=== PATIENT | male | born 1965 | race African-American/Black ===

== ENCOUNTER 2017-01-05 06:10 | Inpatient (IN) | payer OTHER ==
[~2017-01-05 06:10] MED LIST: Buffered Lidocaine 0.9% SYRIN* 5 ML/SYR SYRINGE INTRADERM ONE; Gabapentin CAP(*) 400 MG PO ONE
[2017-01-05] MEDS ORDERED: ceFAZolin 1 GM ADVAN(*) 1 GM ADDV.VIAL IVPB ONE (06:22)
[2017-01-05] MEDS ORDERED: Buffered Lidocaine 0.9% SYRIN* 5 ML/SYR SYRINGE ONE (06:22)
[2017-01-05] MEDS ORDERED: Gabapentin CAP(*) 300 MG ONE (06:22)
[2017-01-05] MEDS ORDERED: ceFAZolin 2 GM PREMIX (*) 50 ML IVPB ONE (06:22)
[2017-01-05] MEDS ORDERED: Midazolam* 1 MG/ML 5 ML VIAL (5 MG) ONE (07:46)
[2017-01-05] MEDS ORDERED: fentaNYL* 50 MCG/ML 2 ML VIAL (100 MCG VIAL) ONE ×4 (07:46→12:25)
[2017-01-05] MEDS ORDERED: Lidocaine 2% EPI 1:200000 MPF* 20 ML VIAL ONE ×2 (07:47→11:00)
[2017-01-05] MEDS ORDERED: Propofol* 500 MG/50 ML BTL ONE ×2 (08:25→09:50)
[2017-01-05] MEDS ORDERED: Propofol* 10 MG/ML 20 ML BTL IV PUSH ONE (08:38)
[2017-01-05] MEDS ORDERED: Ondansetron INJ* 2 MG/ML VIAL IV PRN ×3 (09:10→12:14)
[2017-01-05] MEDS ORDERED: Lactated Ringers 500 ml BAG* 500 ML IV PRN (09:10)
[2017-01-05] MEDS ORDERED: diPHENhydraMINE IV* 50 MG/ML 1 ml VIAL (BENADRYL) IV PRN ×2 (09:10→12:14)
[2017-01-05] MEDS ORDERED: Ropivacaine 0.2% EPIDURAL* 200 MG/100 ML BAG EPIDURAL ONE (10:57)
[2017-01-05] MEDS ORDERED: DiMENhydriNATE IV* 50 MG/ML VIAL IV PUSH PRN (11:11)
[2017-01-05] MEDS ORDERED: Bisacodyl SUPP* 10 MG SUPP PR PRN (12:14)
[2017-01-05] MEDS ORDERED: Magnesium Hydroxide LIQ* 30 ML UDC PO PRN (12:14)
[2017-01-05] MEDS ORDERED: oxyCODONE/Acetamin 5/325 MG* TAB PO PRN (12:14)
[2017-01-05] MEDS ORDERED: Acetaminophen TAB* 325 MG PO PRN (12:14)
[2017-01-05] MEDS ORDERED: HYDROmorphone INJ* 1 MG/ML CARPUJECT SYRINGE ONE (12:25)
[2017-01-05] MEDS ORDERED: Ketorolac INJ* 30 MG/ML 1 ML VIAL ONE (12:26)
[2017-01-05] MEDS: fentaNYL* 50 MCG/ML 2 ML VIAL (100 MCG VIAL) IV PRN ×2 (12:27→12:32)
[2017-01-05] MEDS: Ketorolac INJ* 30 MG/ML 1 ML VIAL IV PRN ×2 (12:28→22:24)
[2017-01-05] MEDS: HYDROmorphone INJ* 1 MG/ML CARPUJECT SYRINGE IV PRN ×5 (12:47→13:28)
--- NOTE | 2017-01-05 13:00 | RAD ---
HISTORY: Status post left knee arthroplasty COMPARISONS: September 14, 2016 VIEWS: 2, Frontal and lateral views of the left knee FINDINGS: BONE DENSITY: Normal. BONES: The patient is status post left knee arthroplasty. There is no hardware failure or osteolysis. JOINTS: The patient is status post left knee arthroplasty ALIGNMENT: There is no dislocation. SOFT TISSUES: Unremarkable. OTHER FINDINGS: None. IMPRESSION: STATUS POST LEFT KNEE ARTHROPLASTY
[2017-01-05] MEDS ORDERED: oxyCODONE TAB* 5 MG TAB ONE (13:36)
[2017-01-05] MEDS: oxyCODONE TAB* 5 MG TAB PO PRN ×3 (13:37→23:44)
[2017-01-05 17:16] LABS: EGFR African American 70.5 (>60); EGFR Non-African American 54.8 (>60)
[2017-01-05] MEDS: ceFAZolin 1 GM VIAL(*) 1 GM in NS 0.9% 50 ML* 50 ML IVPB SCH (18:12)
[2017-01-05] MEDS: Ropivacaine 0.2% EPIDURAL* 200 MG/100 ML BAG EPIDURAL SCH (18:41)
[2017-01-05] MEDS ORDERED: Lactated Ringers 500 ml BAG* 500 ML IV ONE (20:00)
[2017-01-05] MEDS: Docusate CAP* 100 MG PO SCH (22:24)
[2017-01-06] MEDS: Ropivacaine 0.2% EPIDURAL* 200 MG/100 ML BAG EPIDURAL SCH (02:27)
[2017-01-06] MEDS: ceFAZolin 1 GM VIAL(*) 1 GM in NS 0.9% 50 ML* 50 ML IVPB SCH ×2 (02:30→12:12)
[2017-01-06] MEDS: oxyCODONE/Acetamin 5/325 MG* TAB PO PRN ×5 (05:48→18:31)
[2017-01-06 07:03] LABS: Comments Flag Yes; Hematocrit 29 % (42-52); Hemoglobin 9.7 g/dl (14.0-18.0)
[2017-01-06 07:16] LABS: BUN/Creatinine Ratio 10.4 (8-20); Calcium 7.6 mg/dL (8.6-10.3); EGFR African American 72.3 (>60); EGFR Non-African American 56.2 (>60); Potassium 3.6 mmol/L (3.5-5.0)
--- NOTE | 2017-01-06 07:37 | PN ---
Progress Note - Progress Note Date of Service: 01/06/17 SOAP: Subjective: Pain decreased. Epidural (& Hamilton) removed. Objective: Comfortable-appearing in bed, using an incentive spirometer, surrounded by 2 guards NAD LLE: - FIONA c/d/i - NVID x-rays L knee yesterday: excellent position of implants, no fracture Selected Entries 01/06/17 03:23 Temperature 99.8 F Pulse Rate 96 Respiratory 16 Rate Blood Pressure 106/57 (mmHg) O2 Sat by Pulse 99 Oximetry Laboratory Tests 01/05/17 01/06/17 01/06/17 16:50 06:11 06:11 Hct 29 L Sodium 131 L Creatinine 1.37 H 1.34 H Assessment: POD 1 L TKA Plan: - PT, OOB, WBAT, for walking, strengthening, ROM - I placed a pillow under patient's heel - Xarelto outpatient dose starting this AM - Ancef x 24 hours postop - Pain control
[2017-01-06] MEDS: Rivaroxaban TAB(*) 20 MG TAB PO SCH (08:52)
[2017-01-06] MEDS: Docusate CAP* 100 MG PO SCH ×2 (08:52→20:25)
[2017-01-06] MEDS: Vitamin THERAPEUTIC TAB PO SCH (08:52)
[2017-01-06] MEDS: Morphine INJ* 2 MG/ML 1 ML CARPUJECT IV PRN ×2 (09:36→12:30)
--- NOTE | 2017-01-06 10:24 | OP ---
DATE OF OPERATION: 01/05/17 - ROOM #341 DATE OF : 65 ATTENDING SURGEON: Eugenio Rojas MD. BOOT AND SHOE REPAIRMAN: JESUS Buchanan. A physician circulation assistant was required for the length of the procedure for retraction and instrumentation. Katharine Larios was second assist. ANESTHESIOLOGIST: Cornelio Belcher MD. ANESTHESIA: Spinal anesthesia, epidural anesthesia. PRE-OP DIAGNOSIS: Left knee osteoarthritis. POST-OP DIAGNOSIS: Left knee osteoarthritis. OPERATIVE PROCEDURE: Left total knee arthroplasty. ANTIBIOSIS: Ancef 3 g IV. IV FLUIDS: 2200 cc crystalloid. TOURNIQUET TIME: 143 minutes up, 19 minutes down, 31 minutes up, at 300 mmHg. COMPLICATIONS: None. ESTIMATED BLOOD LOSS: Less than 250 cc. SPECIMENS: None. IMPLANTS: DePuy, Tello and Tello Attune, cruciate retaining total knee arthroplasty system. Size 8 femur, cruciate retaining. Size 6 tibial base plate, fixed bearing. Size 7 mm insert, cruciate retaining. Patella size 38 mm. Simplex bone cement, Danielito. INDICATIONS FOR PROCEDURE: The patient is a 51-year-old man, a prisoner in [place], who presented to me in clinic with a long history, over 15 years of pain and osteoarthritis of the left knee. He had a distant past history of what seemed to be an open lateral meniscectomy, likely complete, as a teenager or younger. The patient had long considered a total knee arthroplasty for over the last 10 years. He presented to me interested in it. He responded insufficiently to nonoperative management, as I detailed in my history and physical on prior clinic notes, and he opted for total knee replacement. The patient had a history of DVT in 2009 and diagnosed factor V Leiden deficiency, on Xarelto. Discussed risks and potential complications of procedure including bleeding, infection, nerve or blood vessel injury, blood clot, knee pain, implant failure , knee stiffness, , pulmonary embolus, deep venous thrombosis. The patient opted for surgery. DESCRIPTION OF PROCEDURE: Preoperative written consent was obtained. The patient had been stopped on Xarelto the Tuesday prior to procedure being his final dose, which is actually 4 days prior to the operation. It had been intended to be stopped 3 days pre-op. Operative extremity was marked in the preoperative holding. The patient was taken back to the operating room and epidural anesthetic was placed by Dr. Cornelio Belcher, the anesthesiologist. The patient was placed supine on operating room table. A lateral thigh post was placed on the bed to prevent external rotation of the left lower extremity. A proximal left thigh tourniquet was placed. The left knee had been shaved of hair by preoperative staff. I did an examination under anesthesia which revealed range of motion from 2 to 110 degrees of flexion. Knee ligaments were stable to stress testing. The left lower extremity was prepped with chlorhexidine from foot to proximal thigh followed by ChloraPrep. The left lower extremity was draped. The Catacel Butterfield , a knee positioner system, was utilized and the foot was placed in the holster. Gloves were changed. Surgical time-out was performed. An Esmarch was applied and the tourniquet was elevated to 300 mmHg. An anterior longitudinal skin incision was made from 4 fingerbreadths from proximal pole of the patella to the distal end of the tibial tubercle, the skin overlying the tibial tubercle. I exchanged knives and I continued my dissection deep through the subcutaneous tissue, also in the midline. I encountered the patella and the extensor mechanism. I used a Catacel Butterfield curved scissors to cut the subcutaneous tissue overlying the extensor mechanism proximally. Using feathering strokes, I dissected down on to the extensor mechanism more distally and exposed it centrally and medially. With the knee in approximately 70 degrees of flexion, I marked my medial parapatellar arthrotomy and then made it with a #10 blade. I continued this parapatellar arthrotomy deep distally through the anterior horn of the medial meniscus. I then extended the knee. Used Bovie electrocautery to peel the capsule off the anterior aspect of the medial tibial plateau. I then continued that dissection with a 3/8th or 1/4-inch curved osteotome around the medial aspect of the medial tibial plateau. I next used electrocautery to remove some of the anterior capsule off the lateral tibial plateau deep to the patellar tendon. I removed some but not all of the fat deep to the patellar tendon. I partially everted the patella and released some soft tissue, although no tendon from circumferential about the undersurface of the patella. Removed osteophytes off the patella with a rongeur. I revealed the lateral patellofemoral ligament and released some of it with Bovie electrocautery. The patella was able to easily pita with knee flexion, allowing for nice exposure of the knee joint. I encountered a significant deformity of the patellofemoral compartment. Besides large osteophytes about the undersurface of patella, there was a deep defect in the lateral aspect of the trochlear groove, a full thickness cartilage loss, focally. I next placed retractors medially and laterally. Placed a Schnitt hemostat posterior to the ACL and used Bovie electrocautery to cut the mid substance of the ACL. I removed the proximal and distal stumps of the ACL with a rongeur. I next removed some peripheral osteophytes of the peripheral aspect of the medial and lateral femoral condyle. I also removed with a rongeur, osteophytes in the intercondylar notch. I marked a spot with Bovie electrocautery just anterior to the origin of the PCL, just medial to the midpoint of the medial femoral condyle from medial to lateral. I next placed a drill on ream and reamed into the femoral canal. Irrigation was placed. Irrigation was sucked out along with some marrow contents. I then placed a distal femoral cutting guide. I used a distal femoral cutting guide set on 5 degrees of valgus and 9 mm of resection. I pinned this guide and then removed bone with an oscillating saw. I next excised the femur. I sized to within an size 8 and size 9. I placed a 4 in one cutting guide first, size 9. I made an anterior cut. It was obvious that an additional 3 mm could be taken, so I next placed the size 8, 4, and 1 cutting guide. I then made my anterior femoral cut and liked the resection. I pinned that 4 and 1 cutting guide and I made my anterior-posterior, anterior chamfer, and posterior chamfer cuts with an oscillating saw. I removed some osteophytes posteriorly with curved osteotome. I placed retractors including pickle-fork retractor to expose the tibia. I next placed my external alignment tibial guide over the lower leg. I did not see significant wear of either medial or lateral compartment, which was as expected, having viewed radiographs preoperatively. I removed 6 mm off the medial side with a posterior slope set at 7 degrees. I pinned my guide, I confirmed its proper orientation with an alignment gary, and used an oscillating saw to make my cuts. After making this cut, I decided I wanted additional bone resected and slightly more posterior slope to get a true 7 degrees of posterior slope. I therefore replaced my tibial resection guide, took an additional approximate 4 mm, and added a little bit more posterior slope to my cut. Removed instrumentation. Removed some additional osteophytes from the posterior femur. I placed laminar spreaders. I removed meniscus, medial and lateral. Very little lateral meniscus was present, likely the vestige of prior lateral subtotal meniscectomy in his youth. Spacers confirmed symmetry of flexion and extension gaps and stability to varus/valgus testing. I placed a trial femur, size 8. I drilled holes through that trial. Placed a 6 mm trial tibia with a 5 mm insert and used the float technique to determine the proper rotation of the tibial implant. This corresponded with the medial third of the tibial tubercle as expected. I marked that position with Lesley electrocautery. I next sized the tibia. Tibia had a slightly unusual shape in that there was a prominence quite proximally directly anterior, tibial tubercle with the medial and lateral tibial plateaus extending much less far anteriorly. Sized the tibia through a 6. I prepared the tibia- pinned it, drilled it, and punched it. Extended the knee, measured the patella to have a depth of 27 mm. Using free hand technique, used an oscillating saw to cut the patellar depth down to 14 mm. Sized the patella to a 38 and drilled it. Irrigation of knee. Placed a component of my anterior chamfer cut from previously into the femoral canal hole to stop it up. Cement was mixed. My gloves were changed. I applied cement and placed tibial, then femoral and then patellar implants along with a trial 6 mm insert. I allowed the cement to harden. Dropped tourniquet as I was over 2 hours. There was some general oozing, but only one small medial subcutaneous focal bleeder, which was stopped with electrocauteryLesley. Trialed the knee. Trialed with both 6 mm and 7 mm poly trials. I preferred the 7 mm as it was slightly tighter. Excellent stability varus to valgus in knee extension and flexion. Excellent range of motion 0 to 130 degrees of flexion. I placed final polyethylene insert, size 7 mm. Irrigation. Patella tracked nicely. Tourniquet was re-elevated. Parapatellar arthrotomy was closed with [id number] stitches using Vicryl 0 suture. Subcutaneous tissue was closed with buried simple stitches using Vicryl 2- 0 suture. Skin was closed with carmelita. Xeroform, 4x4's, ABDs, sterile Webril, Tato bandage from foot to proximal thigh. Tourniquet was dropped. The patient was transferred to the PACU for admission postoperatively from there. DISPOSITION: The patient will be admitted for pain control, oral and IV, physical therapy, DVT prophylaxis both mechanical and Xarelto, restarting tomorrow morning. The patient will receive Ancef q.8 hours x24 hours postoperatively. He will work extensively with physical therapy. He will see me in the office approximately 14 days postoperative for a wound check and removable of carmelita. [id number]/[facility] #: [id number] MTDAriela
[2017-01-06] MEDS: Morphine INJ* 2 MG/ML 1 ML SYRINGE (TWO MG - NEW SYRINGE VERSION) IV PRN ×5 (12:21→20:25)
[2017-01-06] MEDS: oxyCODONE TAB* 5 MG TAB PO PRN (22:28)
[2017-01-07] MEDS: Morphine INJ* 2 MG/ML 1 ML SYRINGE (TWO MG - NEW SYRINGE VERSION) IV PRN ×2 (00:27→04:35)
[2017-01-07] MEDS: oxyCODONE TAB* 5 MG TAB PO PRN ×2 (02:45→06:39)
[2017-01-07 07:01] LABS: Hematocrit 31 % (42-52); Hemoglobin 10.4 g/dl (14.0-18.0)
[2017-01-07 07:12] LABS: Comments Flag Yes
--- NOTE | 2017-01-07 07:36 | PN ---
Progress Note - Progress Note Date of Service: 01/07/17 SOAP: Subjective: Walked without assist device with PT yesterday. Pain c/w Percocet & Morphine. Ate well yesterday. Objective: NAD, comfortable LLE: - knee in full extension - inc c/d/i - NVID Selected Entries 01/07/17 03:35 Temperature 99.3 F Pulse Rate 97 Respiratory 16 Rate Blood Pressure 151/74 (mmHg) O2 Sat by Pulse 95 Oximetry Laboratory Tests 01/07/17 06:53 Hct 31 L Assessment: POD 2 L TKA Plan: - Dressing change once daily by PA/. I just did it. - Khanh Naqvi - Pain control - PT, OOB, WBAT, ROM/strength - Dispo planning. I informed patient that secondary to the assisted postop environment, I want to avoid shower for 7 days postop and ABD and FIONA bandage over knee incision for 30 days postop with dressing change once daily. I prefer ABDs then FIONA bandage. - Patient will need PT in assisted for strengthening and ROM left knee - f/u in office ~ 2 weeks postop for wound check and staple removal
[2017-01-07] MEDS: oxyCODONE/Acetamin 5/325 MG* TAB PO PRN ×5 (08:47→22:24)
[2017-01-07] MEDS: Docusate CAP* 100 MG PO SCH ×2 (08:48→21:14)
[2017-01-07] MEDS: Vitamin THERAPEUTIC TAB PO SCH (08:48)
[2017-01-07] MEDS: Rivaroxaban TAB(*) 20 MG TAB PO SCH (08:52)
[2017-01-07] MEDS: oxyCODONE SR TAB(*) 10 MG TAB.SR PO SCH ×2 (10:45→21:14)
[2017-01-08] MEDS: oxyCODONE/Acetamin 5/325 MG* TAB PO PRN ×4 (01:24→15:41)
[2017-01-08 07:02] LABS: Hematocrit 28 % (42-52); Hemoglobin 9.5 g/dl (14.0-18.0)
[2017-01-08 07:03] LABS: Comments Flag Yes
[2017-01-08] MEDS: Vitamin THERAPEUTIC TAB PO SCH (08:42)
[2017-01-08] MEDS: Docusate CAP* 100 MG PO SCH (08:42)
[2017-01-08] MEDS: Rivaroxaban TAB(*) 20 MG TAB PO SCH (08:43)
[2017-01-08] MEDS: oxyCODONE SR TAB(*) 10 MG TAB.SR PO SCH (08:43)
--- NOTE | 2017-01-08 09:37 | PN ---
Progress Note - Progress Note Date of Service: 01/08/17 SOAP: Subjective: [Patient reports doing well. No complaints of pain. Denies CP, dizziness, lightheadedness. Has been ambulating WBAT L LE, stairs.] Objective: [A and O x 3, NAD L knee dressing C/D/I. Surgical wound benign. Calf soft, NT Distal NV function intact. Gross motor intact. Vital Signs: Temp Pulse Resp BP Pulse Ox 98.7 F 84 18 128/63 97 01/08/17 04:05 01/08/17 04:05 01/08/17 08:43 01/08/17 04:05 01/08/17 04:05 Laboratory Results - last 24 hr 01/08/17 06:41 Hgb 9.5 L Hct 28 L ] Assessment: [s/p L TKA POD #3] Plan: [D/C patient back to facility Percocet for pain management Xarelto for DVT prohylaxis PT Follow-up with Dr. Rojas in office in 2 weeks for wound check and staple removal]
[2017-01-08 15:57] VITALS: BP 166/72
--- NOTE | 2017-01-10 04:17 | DS ---
DISCHARGE SUMMARY: DATE OF ADMISSION: 01/05/17 DATE OF DISCHARGE: 01/08/17 PROVIDER: Eugenio Rojas MD * (DICTATED BY JESUS PAGE) ADMITTING PHYSICIAN: Dr. Rojas. ADMITTING DIAGNOSES: Right knee osteoarthritis, factor V Leiden deficiency, history of DVT in 2009. DISCHARGE DIAGNOSES: Status post right total knee arthroplasty, factor V Leiden deficiency, history of DVT in 2009. CONSULTANTS: Physical Therapy, Occupational Therapy. BRIEF HISTORY: Mr. Rai is a 51-year-old incarcerated male with severe degenerative osteoarthritis of his right knee. He failed conservative treatment measures and elected to undergo a right total knee arthroplasty on 07/[address] Rojas. HOSPITAL COURSE: Mr. Rai was admitted to [facility] on 01/05/17. He underwent an uncomplicated right total knee arthroplasty. Postoperatively, he recovered on the short stay surgical unit. His Hamilton catheter was removed on postoperative day 1 and he was able to urinate on his own. On postoperative day 2, the patient did well with physical therapy and was able to ambulate without an assistive device. He advanced to a regular diet without difficulty. His pain was well controlled with Percocet and morphine. He was restarted on home medications including Xarelto 20 mg daily. His vital signs and labs remained stable. He was able to bear weight as tolerated on the right lower extremity. He advanced appropriately with physical therapy and occupational therapy. By postoperative day 3, he was orthopedically and medically stable for discharge back to this facility. PHYSICAL EXAM: General: On examination, the patient is noted to be calm and cooperative, in no acute distress. He is alert and oriented x3. Vital signs on the day of discharge, temperature 98.7 degree Fahrenheit, pulse rate 84, respirations 16, O2 sat 97% on room air, blood pressure 128/63. Extremities: Examination of the right lower extremity demonstrates a dressing overlying the right knee, which is clean, dry, and intact. The calf is soft and compressible. Distally, he has +2 palpable DP pulse and gross motor and sensation are intact. LABORATORY DATA: On the day of discharge, hemoglobin was 9.5, hematocrit was 28. RADIOGRAPHS: Postoperative radiographs of the right knee demonstrate a right total knee arthroplasty with satisfactory prosthesis placement and no acute mellissa abnormalities. DISCHARGE MEDICATIONS: 1. Xarelto 20 mg daily. 2. Percocet 5/325 mg 1 to 2 tabs p.o. q.4 to 6 hours p.r.n. 3. Colace 100 mg up to t.i.d. p.r.n. constipation. CONDITION ON DISCHARGE: Stable. DISCHARGE INSTRUCTIONS: Mr. Rai is a 51-year-old incarcerated male, postoperative day #3, status post right total knee arthroplasty, which was uncomplicated. He is orthopedically and medically stable to be discharged back the facility. He has stable vital signs and labs. He has already started his home medications Xarelto 20 mg daily and he will use Percocet 5/325 for pain. He will use Colace if needed for constipation. He will remain weightbearing as tolerated on the right lower extremity and has physical therapy in this facility. He was instructed to not shower until January 12 and keep a dressing on his knee at all times, preferably an ABD and Tato bandage. He will follow up in the office with Dr. Rojas in 10 to 14 days postoperative incision check and suture removal. He was instructed to be in touch with Dr. Rojas or go immediately to the ER should he develop any new fevers, chills, incision pain, redness, or drainage. He was instructed to go immediately to the ER should he develop chest pain or shortness of breath. JESUS PAGE [id number]/[facility] #: [id number] MTDAriela
== END 2017-01-08 14:05 | DRG 302 ==
LOC: EEVIPCON 06:10 → AA 06:10 → SSU 14:11
PROVIDERS: ADMIT Orthopaedic Surgery; ATTEND Orthopaedic Surgery
PROC: 0SRD0J9 Replacement of Left Knee Joint with Synthetic Substitute, Cemented, Open Approach (ICD-10-PCS; principal; 2017-01-05 07:45)
DX: M17.12 Unilateral primary osteoarthritis, left knee (principal); D68.2 Hereditary deficiency of other clotting factors; M25.762 Osteophyte, left knee; F17.210 Nicotine dependence, cigarettes, uncomplicated; Z86.718 Personal history of other venous thrombosis and embolism; Z98.1 Arthrodesis status; Z79.01 Long term (current) use of anticoagulants
CPT/HCPCS: 36415; 80048; 82565; 85014; 85018; 94760; A9270-GY; J0690; J1170; J1885; J2250; J2270; J2704; J2795; J3010